=== PATIENT | female | born 1965 | race Native Hawaiian/Other Pacific Islander ===

== ENCOUNTER 2018-04-26 09:03 | Outpatient (CLI) | payer OTHER | END 2018-04-26 09:21 | disposition short-term general hospital (02) | LOC: AMB 09:03 | DX: R07.89 Other chest pain (principal); S61.412A Laceration without foreign body of left hand, initial encounter; S61.411A Laceration without foreign body of right hand, initial encounter; S50.12XA Contusion of left forearm, initial encounter; S50.11XA Contusion of right forearm, initial encounter; V59.88XA Occupant (driver) (passenger) of pick-up truck or van injured in other specified transport accidents, initial encounter; Y92.488 Other paved roadways as the place of occurrence of the external cause | CPT/HCPCS: A0425; A0427 ==

== ENCOUNTER 2018-04-26 09:23 | Emergency (ER) | payer OTHER ==
[~2018-04-26] VITALS: Ht 170.2 cm; Wt 113.4 kg
[2018-04-26 09:23] VITALS: TEMP 97.9
[2018-04-26 13:07] VITALS: BP 123/76
== END 2018-04-26 15:07 | disposition home or self-care (01) ==
LOC: ED 09:23
DX: S09.90XA Unspecified injury of head, initial encounter (principal); S29.9XXA Unspecified injury of thorax, initial encounter; S61.412A Laceration without foreign body of left hand, initial encounter; S61.411A Laceration without foreign body of right hand, initial encounter; V59.40XA Driver of pick-up truck or van injured in collision with unspecified motor vehicles in traffic accident, initial encounter
CPT/HCPCS: 82550; 82553; 84484; 90715; 93005; 96374; 99284; J0696; J1885; Q9963

== ENCOUNTER 2018-05-05 18:07 | Emergency (ER) | payer OTHER ==
[~2018-05-05] VITALS: Ht 170.2 cm; Wt 113.4 kg
[2018-05-05 19:30] VITALS: BP 114/80; TEMP 98
== END 2018-05-05 19:30 | disposition home or self-care (01) ==
LOC: ED 18:07
DX: Z48.02 Encounter for removal of sutures (principal)